=== PATIENT | male | born 1980 | race Caucasian/White ===

== ENCOUNTER 2017-02-19 11:30 | Day surgery (SDC) | payer MEDICARE, MEDICAID ==
[~2017-02-19 11:30] MED LIST: ABILIFY2 M1 PO; ADVAIR 1001 DISK W/D INH; ALBUTEROL SULF8.5 GM IH; AMLODIPINE BESYL5 MG PO; AMOXICILLIN500 MG PO; ATIVAN0.5 MG PO; AVAPRO150 MG; AVAPRO300 MG PO; BOOST PO; BOOST237 M1 PO; BYSTOLIC10 MG PO; BYSTOLIC20 M1 PO; BYSTOLIC20 MG PO; BYSTOLIC5 MG PO; CALAN120 MG PO; CALCITRIOL0.5 MCG PO; CALCIUM500 M1 PO; CARDURA1 MG PO; CELEBREX100 M1 PO; CELLCEPT500 MG; CHANTIX0.5 MG; CLARITIN10 MG; CLONAZEPAM0.5 MG PO; COMPAZINE10 M PO; CORTEF10 M1 PO; CORTEF5 M1 PO; CORTEF5 MG PO; COZAAR; COZAAR100 MG PO; CPAP; CRESTOR5 MG PO; DILANTIN100 MG PO; DIPHENHYDRAMINE25 PO; DOXYCYCLINE HY100 MG PO; EFFEXOR XR150 MG PO; ELIPHOS667 MG/TAB PO; GABAPENTIN300 MG PO; H PO; HYDRALAZINE HCL25 M1 PO; HYDROCODON-ACE1 EAC7 PO; HYDROCORTISONE PO; Hydrocortisone PO; KEFLEX500 M1 PO; LASIX80 MG; LEXAPRO10 M2 PO; LISINOPRIL20 MG; LISINOPRIL40 MG; LONITEN10 MG PO; MIACALCIN4 ML NS; MINOCYCLINE HC100 MG PO; MINOXIDIL10 M1 PO; MINOXIDIL10 MG PO; MIRALAX17 G2 PO; MULTI VITAMIN1 EAC1 PO; NEPHROCAPS CAPSU1 MG PO; NEURONTIN300 M1 PO; NEURONTIN300 MG PO; NEXIUM40 M2 PO; NEXIUM40 MG PO; NORTRIPTYLINE H25 MG PO; NORVASC10 M1 PO; NORVASC10 MG; NORVASC5 M1 PO; PAXIL10 MG; PAXIL10 MG PO; PAXIL40 M1 PO; PHOSLO667 M; PHOSLO667 M PO; PHOSLYRA667 MG/51 PO; PLAVIX75 MG PO; PRILOSEC20 MG PO; PRILOSEC40 MG; PROCEL PO; PROGRAF1 MG; PROMETHAZINE HC25 M1 PO; PROVENTIL HFA6.7 G1 PO; RENAGEL800 MG; RENAL CAPS SOFTG1 MG; RENAL CAPS SOFTG1 MG PO; RENO PO; REQUIP1 MG PO; TOPROL XL50 MG; TUMS300 M1 PO; TUMS300 MG PO; TUMS500 M1 PO; TYLENOL EXTRA500 M1 PO; TYLENOL325 MG PO; TYLENOL500 MG PO; ULTRAM50 M1 PO; VERAPAMIL NG; VITAMIN D1000 UNI1 PO; VITAMIN D31000 UNIT PO; VITAMIN D50000 UNI2 PO; VOLTAREN100 GM TP; VYTORIN 10/40 T1 TAB; ZOLOFT100 MG PO
[2017-02-19 12:13] LABS: BASO ABSOLUTE COUNT 0.1 tho/cmm (0.0-0.2); EOS % 4.3 % (0-7); EOSINOPHIL ABSOLUTE COUNT 0.2 tho/cmm (0.0-0.7); HCT-HEMATOCRIT 37.5 % (36.0-53.5); HGB-HEMOGLOBIN 12.5 gm/dl (13.5-17.0); LYMPH % 25.8 % (20-45); MCH (MEAN CORPUSCULAR HGB) 31.4 pg (28.0-32.0); MCHC MEAN CORPUSCULAR HGB CONC 33.3 % (32.0-36.0); MCV (MEAN CELL VOLUME) 94.2 fl (82.0-96.0); MEAN PLATELET VOLUME 9.2 cmc (9.4-12.4); MONO % 11.3 % (0-12); MONOCYTE ABSOLUTE COUNT 0.5 tho/cmm (0.0-1.2); NEUTROPHIL ABSOLUTE COUNT 2.3 tho/cmm (1.6-8.0); NEUTROPHIL-AUTOMATED 2.3 tho/cmm (1.6-8.0); NEUTROPHILS % 56.6 % (40-80); PLATELET COUNT 145 tho/cmm (150-450); RED BLOOD COUNT 3.98 mil/cmm (4.40-5.70)
[2017-02-19 12:21] LABS: ANION GAP 18 mmol/L (0-20); BLOOD UREA NITROGEN 45 mg/dl (6-24); CALCIUM 7.2 mg/dl (8.5-10.5); CARBON DIOXIDE-VENOUS 29 mmol/L (22-32); CHLORIDE 96 mmol/l (96-110); CREATININE 8.95 mg/dl (0.60-1.30); GLUCOSE 78 mg/dL (70-110); POTASSIUM 4.3 mmol/L (3.7-5.1); SODIUM 139 mmol/L (135-145); eGFR VALUE FOR BLACK 8 mL/Min
== END 2017-02-19 15:15 ==
LOC: RADSP 11:30 → SHSC 11:33
PROVIDERS: Anesthesiology
PROC: 05753ZZ Dilation of Right Subclavian Vein, Percutaneous Approach (ICD-10-PCS; principal; 2017-02-19)
DX: T82.858A Stenosis of other vascular prosthetic devices, implants and grafts, initial encounter (principal); I12.0 Hypertensive chronic kidney disease with stage 5 chronic kidney disease or end stage renal disease; N18.6 End stage renal disease; G40.909 Epilepsy, unspecified, not intractable, without status epilepticus; M15.9 Polyosteoarthritis, unspecified; F41.9 Anxiety disorder, unspecified; F32.9 Major depressive disorder, single episode, unspecified; K21.9 Gastro-esophageal reflux disease without esophagitis; J45.909 Unspecified asthma, uncomplicated; I27.2 Other secondary pulmonary hypertension; F17.210 Nicotine dependence, cigarettes, uncomplicated; Z79.899 Other long term (current) drug therapy; Z88.8 Allergy status to other drugs, medicaments and biological substances; Z98.890 Other specified postprocedural states; Y83.8 Other surgical procedures as the cause of abnormal reaction of the patient, or of later complication, without mention of misadventure at the time of the procedure
CPT/HCPCS: C1725; C1769; C1887; J7030; Q9967